=== PATIENT | male | born 1950 | race Caucasian/White ===

== ENCOUNTER 2021-10-26 13:12 | Emergency (ER) | payer OTHER ==
[2021-10-26 13:23] VITALS: BMI 31.0
[2021-10-26] MEDS ORDERED: ASPIRIN 81 MG CHEWABLE TABLETS PO ONE (13:35)
[2021-10-26] MEDS ORDERED: ASPIRIN 81 MG CHEWABLE TABLETS ONE (13:43)
[2021-10-26 14:10] VITALS: TEMP 98.5
[2021-10-26] MEDS ORDERED: ATORVASTATIN CA 80 MG TABLET (FP) PO ONE (14:28)
[2021-10-26] MEDS ORDERED: ATORVASTATIN CA 80 MG TABLET (FP) ONE (14:32)
[2021-10-26] MEDS ORDERED: HEPARIN NA (PORCINE) 5,000 UNITS/ML 1ML VIAL IVPUSH ONE (14:42)
[2021-10-26] MEDS ORDERED: HEPARIN NA (PORCINE) 5,000 UNITS/ML 1ML VIAL IVPUSH PRN ×2 (14:43)
[2021-10-26] MEDS ORDERED: HEPARIN INFUSION - 25,000 UNITS/500 ML INFUS.BAG IVPB SCH (14:45)
[2021-10-26] MEDS ORDERED: CLOPIDOGREL BISULFATE 300 MG TABLET PO ONE (14:47)
[2021-10-26] MEDS ORDERED: HEPARIN INFUSION - 25,000 UNITS/500 ML INFUS.BAG IVPB ONE (15:05)
[2021-10-26] MEDS ORDERED: HEPARIN NA (PORCINE) 5,000 UNITS/ML 1ML VIAL ONE (15:05)
[2021-10-26] MEDS ORDERED: CLOPIDOGREL BISULFATE 300 MG TABLET ONE (15:05)
[2021-10-26 15:27] LABS: BASO % 0.5 % (0-2.0); EOS % 2.2 % (0-4.5); HEMATOCRIT 45.2 % (35.4-49); MCH 32.6 pg (25.7-33.7); MCHC 33.1 g/dl (32.0-35.9); MEAN CELL VOLUME 98.4 fl (80-96); MEAN PLT VOLUME 8.8 fl (7.5-11.1); MONO % 4.8 % (3.8-10.2); NEUT % 83.5 % (42.8-82.8); PLATELET COUNT 152 10^3/uL (134-434); RBC 4.59 M/mm3 (4.00-5.60); RDW 13.9 % (11.9-15.9); WHITE BLOOD COUNT 10.8 K/mm3 (4.0-10.0)
[2021-10-26 15:33] LABS: INR 1.08 (0.83-1.09); PROTHROMBIN TIME (PATIENT) 12.4 SEC (9.7-13.0)
[2021-10-26 15:36] LABS: ACTIVATED PTT 26.4 SECONDS (25.2-36.5)
[2021-10-26 15:46] LABS: LACTIC ACID 4.8 mmol/L (0.4-2.0)
[2021-10-26] MEDS ORDERED: VANCOMYCIN 1,000 MG in DEXTROSE 5%-WATER - 250 ML IVPB ONE (16:19)
[2021-10-26] MEDS ORDERED: PIPERACILLIN/TAZOB 4.5 GM 4.5 GM in DEXTROSE 5%-WATER 100 ML IVPB ONE (16:19)
[2021-10-26] MEDS ORDERED: PIPERACILLIN/TAZOB 4.5 GM 4.5 GM/100 ML BAG IVPB ONE (16:42)
[2021-10-26 16:44] LABS: CHLORIDE 108 mmol/L (98-107); SODIUM 139 mmol/L (136-145)
[2021-10-26 16:46] LABS: ALBUMIN 3.2 g/dl (3.4-5.0); ANION GAP 10 MMOL/L (8-16); BLOOD UREA NITROGEN 19.9 mg/dL (7-18); CALCIUM 8.4 mg/dL (8.5-10.1); CO2 21 mmol/L (21-32); GLUCOSE,RANDOM 124 mg/dL (74-106); MAGNESIUM 2.4 mg/dL (1.8-2.4)
[2021-10-26 16:49] LABS: PHOSPHOROUS 4.3 mg/dL (2.5-4.9); SGOT/AST 47 U/L (15-37)
[2021-10-26 16:50] LABS: CREATININE 1.1 mg/dL (0.55-1.3); SGPT/ALT 26 U/L (13-61)
[2021-10-26 16:51] LABS: BILIRUBIN,TOTAL 0.5 mg/dL (0.2-1); TOT PROT 6.7 g/dl (6.4-8.2)
[2021-10-26 16:52] LABS: ALK PHOS 41 U/L (45-117)
[2021-10-26] MEDS ORDERED: MIDAZOLAM HCL 5 MG/1 ML Single Dose Vial IM ONE (17:51)
[2021-10-26] MEDS ORDERED: HALOPERIDOL LACTATE 5 MG/ML IM ONE (17:55)
[2021-10-26] MEDS ORDERED: MIDAZOLAM HCL 2 MG/2 ML SINGLE DOSE VIAL IM ONE ×2 (17:55→18:13)
[2021-10-26] MEDS ORDERED: HALOPERIDOL LACTATE 5 MG/ML ONE (17:56)
[2021-10-26] MEDS ORDERED: MIDAZOLAM HCL 2 MG/2 ML SINGLE DOSE VIAL ONE ×3 (17:56→21:23)
[2021-10-26] MEDS ORDERED: MIDAZOLAM HCL 2 MG/2 ML SINGLE DOSE VIAL IVPUSH ONE (18:09)
[2021-10-26 20:28] VITALS: BP 109/69; PULSE 90
[2021-10-26] MEDS ORDERED: VANCOMYCIN 1 GRAM (PRE-DOCKED) 1,000 MG/250 ML BAG IVPB ONE (20:39)
[2021-10-26] MEDS ORDERED: MIDAZOLAM HCL 5 MG/1 ML Single Dose Vial IVPUSH ONE (21:22)
== END 2021-10-26 21:44 | disposition short-term general hospital (02) ==
LOC: JER 13:12
PROC: 3E023GC Introduction of Other Therapeutic Substance into Muscle, Percutaneous Approach (ICD-10-PCS; principal; 2021-10-26)
PROC: 3E033GC Introduction of Other Therapeutic Substance into Peripheral Vein, Percutaneous Approach (ICD-10-PCS; principal; 2021-10-26)
DX: I21.4 Non-ST elevation (NSTEMI) myocardial infarction (principal)
CPT/HCPCS: 36415; 70450-TC; 71045-TC-FY; 80053; 82272; 82550; 82553; 82962; 83605; 83735; 84100; 84132; 84484; 85025; 85610; 85730; 87040; 93005; 93010; 99291; C9803-CS; J1644; U0003; U0005